=== PATIENT | female | born 2005 | race Caucasian/White ===

== ENCOUNTER 2023-03-20 00:07 | Emergency (ER) | payer OTHER ==
[2023-03-20 00:24] VITALS: BP 99/66; PULSE 92; RESP 18; TEMP 99; BMI 37.5
[2023-03-20] MEDS ORDERED: IBUPROFEN 600 MG TABLET (FP) PO ONE ×2 (01:11→01:12)
[2023-03-20] MEDS ORDERED: LIDOCAINE 4% PATCH TP ONE ×2 (01:11→01:13)
== END 2023-03-20 01:43 | disposition home or self-care (01) ==
LOC: JER 00:07
DX: M62.838 Other muscle spasm (principal); V49.40XA Driver injured in collision with unspecified motor vehicles in traffic accident, initial encounter; Y93.19 Activity, other involving water and watercraft; Y92.410 Unspecified street and highway as the place of occurrence of the external cause
CPT/HCPCS: 99283-25